=== PATIENT | male | born 1975 | race Caucasian/White ===

== ENCOUNTER 2017-03-24 18:33 | Inpatient (IN) | payer OTHER ==
[~2017-03-24] VITALS: Ht 170.2 cm; Wt 70.8 kg
--- NOTE | 2017-03-24 18:33 | NUR ---
Patient BIBA BLS, transferred to bed 3. RN evaluating patient at bedside.
--- NOTE | 2017-03-24 18:34 | NUR ---
37 YO MALE BIB EMS FROM THE FIELD FOR ALTERED MENTAL STATUS DUE TO ETOH. PT STS TIRED AT THIS TIME. DENIES ANY PAIN OR N/V/D; SKIN IS PINK/WARM/DRY; AAOX4 WITH EVEN AND STEADY GAIT; LUNGS CLEAR BL; HR EVEN AND REGULAR; PT DENIES ANY FEVER, CP, SOB, OR COUGH AT THIS TIME; PATIENT STATES PAIN OF 0/10 AT THIS TIME; PATIENT POSITIONED FOR COMFORT; HOB ELEVATED; BEDRAILS UP X2; BED DOWN. ER MD MADE AWARE OF PT STATUS.
[2017-03-24 18:39] VITALS: BP 114/62
[2017-03-24] MEDS ORDERED: MULTIVITAMIN-12 10 ML, THIAMINE 100 MG, MAGNESIUM SULFATE 50% 2,000 MG, FOLIC ACID 5 MG... IV ONE ×5 (18:40)
[2017-03-24] MEDS ORDERED: MULTIVITAMIN-12 10 ML VIAL IV ONE (18:55)
[2017-03-24] MEDS ORDERED: MAGNESIUM SULFATE 50% 1000 MG/2 ML VIAL IV ONE (18:55)
[2017-03-24] MEDS ORDERED: FOLIC ACID 5 MG/ML SYR ONE (18:55)
[2017-03-24] MEDS ORDERED: THIAMINE 200 MG/2 ML VIAL ONE (18:55)
--- NOTE | 2017-03-24 19:07 | NUR ---
Dr. Arambula evaluating patient at bedside.
--- NOTE | 2017-03-24 19:10 | NUR ---
PT RESTING IN BED, ON CONTINUITY EDITOR, DENIES ANY PAIN OR SOB, VSS. WILL CONT TO MONITOR.
--- NOTE | 2017-03-24 19:12 | NUR ---
GAVE REPORT TO SAMANTA MUÑOZ.
[2017-03-24 19:14] LABS: HEMATOCRIT 32.2 % (36-52); HEMOGLOBIN 10.4 g/dL (12.0-18.0); MEAN CORPUSCULAR HEMOGLOBIN 30 pg (27-31); MEAN CORPUSCULAR HGB CONC 32 g/dL (33-37); MEAN CORPUSCULAR VOLUME 92 fL (80-94); PLATELET COUNT (AUTO) 218 K/uL (140-450); RED BLOOD CELL COUNT(AUTO) 3.51 MIL/uL (4.20-6.10); RED CELL DISTRIBUTION WIDTH 17.9 % (11.6-13.7); WHITE BLOOD COUNT (AUTO) 5.2 K/uL (4.8-10.8)
[2017-03-24 19:17] LABS: ANION GAP 18.2 (8-16); CARBON DIOXIDE 22.9 mmol/L (21-32); CHLORIDE 106 mmol/L (98-107); CREATININE 0.6 mg/dL (0.7-1.3); GFR ARICAN-AMERICAN 193 mL/min (>90); GLUCOSE 91 mg/dL (74-106); POTASSIUM 4.1 mmol/L (3.5-5.1); SODIUM SERUM 143 mmol/L (136-145); UREA NITROGEN, BLOOD 8 mg/dL (7-18)
[2017-03-24 19:25] LABS: ALBUMIN 3.6 g/dL (3.4-5.0); ASPARTATE AMINOTRANSFERASE 38 U/L (15-37); TOTAL BILIRUBIN 0.2 mg/dL (0.0-1.0)
[2017-03-24 19:26] LABS: ACETAMINOPHEN < 0.5 ug/ml (10-30); EOSINOPHILS % (MANUAL) 3 % (0-4); LYMPHOCYTES % (MANUAL) 26 % (20-46); MONOCYTES % (MANUAL) 7 % (5-12); SALICYLATE < 2.8 mg/dL (2.8-20.0)
--- NOTE | 2017-03-24 19:57 | NUR ---
Patient noted to have existing wounds upon arrival to ER. Photos taken of wound and placed in chart. Wound covered with dressing. Physician informed.
--- NOTE | 2017-03-24 19:58 | NUR ---
Patient will be admitted to care of DR YOUNGER. Admited to TELE. Will go to room 111B. Belongings list completed. Report to SAMANTA NGUYEN.
--- NOTE | 2017-03-24 20:02 | NUR ---
PT TRASFERED TO FLOOR VIA [facility], ACCOMPANIED BY RN AND EMT.
[2017-03-24 20:05] VITALS: BP 127/65
--- NOTE | 2017-03-24 20:10 | NUR ---
PATIENT IS CURRENTLY BEING ADMITTED WITH ALCOHOL INTOXICATION PATIENT HAS SOME DRYNESS NOTED TO BOTH SOLES OF FOOT AND PATIENT HAS GENERALIZES SKIN DRYNESS.PATIENT HAS ALSO A VERY SMALL SCAB NOTED TO THE TOP OF HIS HEAD NOT DRAINING AT THIS TIME PATIENT TEACHING AND EDUCATION DONE NOT TO TOUCH IT OR SCRATCH IT.SKIN ASSESSMENT DONE WITH SAMANTA DONIS. IV BANANA BAG INFUSING WELL,IV SITE PATENT AND NO INFILTRATION NOTED.PLAN OF CARE DISCUSSED WITH THE PATIENT.WILL CONTINUE TO MONITOR.FALL PREC IMPLEMENTED.
[2017-03-24] MEDS ORDERED: NACL 0.9% 1,000 ML IV SCH (20:15)
[2017-03-24] MEDS ORDERED: ACETAMINOPHEN 325 MG TAB PO PRN ×2 (20:15→20:30)
[2017-03-24] MEDS ORDERED: DOCUSATE SODIUM 100 MG GELCAP PO PRN ×2 (20:15→20:30)
[2017-03-24] MEDS ORDERED: ONDANSETRON 4 MG/2 ML VIAL IM/IVP PRN ×2 (20:15→20:30)
[2017-03-24] MEDS ORDERED: LORazepam 1 MG TAB PO PRN ×2 (20:20→20:30)
[2017-03-24 20:22] LABS: BARBITURATE, URINE NEG. ng/ml (NEG <=200); BENZODIAZEPINE, URINE POS. ng/mL (NEG <=200); CANNABINOID, URINE NEG. ng/mL (NEG <=50); COCAINE, URINE NEG. ng/mL (NEG <=300); OPIATE, URINE NEG. ng/mL (NEG <=2000); PHENCYCLIDINE SCREEN,URINE NEG. ng/mL (NEG <=25)
[2017-03-24] MEDS: NACL 0.9% 1,000 ML IV SCH (20:30)
[2017-03-24 20:41] LABS: PROTHROMBIN TIME 10.6 secs (10.8-13.4)
[2017-03-24 20:50] LABS: MAGNESIUM 1.7 mg/dL (1.8-2.4); PHOSPHORUS 4.1 mg/dL (2.5-4.9); THYROID STIMULATING HORMONE 0.52 uIU/mL (0.34-3.74)
[2017-03-24] MEDS ORDERED: LORazepam 1 MG TAB PO SCH (21:00)
[2017-03-24] MEDS: LORazepam 1 MG TAB PO SCH (21:00)
[2017-03-24 21:53] LABS: APPEARANCE,URINE CLEAR (CLEAR); BILIRUBIN,URINE NEGATIVE (NEGATIVE); BLOOD, URINE NEGATIVE (NEGATIVE); COLOR,URINE YELLOW (YELLOW); LEUKOCYTE ESTERASE ,URINE NEGATIVE (NEGATIVE); NITRITE, URINE NEGATIVE (NEGATIVE); PH,URINE 5.5 (5.0-9.0); UGLUCOSE NEGATIVE (NEGATIVE)
--- NOTE | 2017-03-24 22:30 | NUR ---
Patient's Plan of Care was discussed and reviewed with BLEACH BOILER FILLER: PATRICK MICHEL
--- NOTE | 2017-03-24 22:40 | NUR ---
PATIENT TAKEN FOR CT TEST.
--- NOTE | 2017-03-24 23:38 | NUR ---
REPORT FOR CT BRAIN AND HEAD ARE IN AND MD MONSIVAIS HAS BEEN INFORMED AND NO NEW ORDER GIVEN.
[2017-03-25] VITALS (10 sets, daily range): BP systolic 101–145; BP diastolic 63–84
--- NOTE | 2017-03-25 00:40 | NUR ---
PATIENT IS CURRENTLY RESTING IN BED SLEEPING IN NO DISTRESS.CALL LIGHT WITHIN REACH.WILL CONTINUE TO MONITOR.
[2017-03-25] MEDS: NACL 0.9% 1,000 ML IV SCH (01:12)
--- NOTE | 2017-03-25 02:39 | NUR ---
PATIENT SLEEPING IN BED FALL AND SAFETY PRECAUTIONS IMPLEMENTED.
--- NOTE | 2017-03-25 03:20 | NUR ---
PATIENT RESTING IN BED NO DISTRESS WILL CONTINUE TO MONITOR.
[2017-03-25] MEDS: LORazepam 1 MG TAB PO SCH ×3 (04:46→21:00)
--- NOTE | 2017-03-25 04:55 | NUR ---
PATIENT STABLE RESTING IN BED IVF INFUSING WELL IV SITE PATENT CALL LIGHT WITHIN REACH.
--- NOTE | 2017-03-25 05:20 | NUR ---
EDUCATION GIVEN TO THE PATIENT ON THE IMPORTANCE OF SCD'S FOR DVT PROPHALAXIS. PATIENT NEEDS FURTHER EDUCATION AND REINFORCEMENT.
--- NOTE | 2017-03-25 05:20 | NUR ---
PATIENT REFUSES SCD'S AT THIS TIME COMPLAINS OF LOTS OF PAIN TO HIS RT LOWER EXTREMITY WHEN BOOT CONTRACTS, AND PATIENT FEELS RELIEF WHEN SCD'S IS OFF. SCD'S REMOVED.
[2017-03-25 05:24] LABS: HEMATOCRIT 32.1 % (36-52); HEMOGLOBIN 10.2 g/dL (12.0-18.0); MEAN CORPUSCULAR HEMOGLOBIN 29 pg (27-31); MEAN CORPUSCULAR HGB CONC 32 g/dL (33-37); MEAN CORPUSCULAR VOLUME 91 fL (80-94); PLATELET COUNT (AUTO) 225 K/uL (140-450); RED BLOOD CELL COUNT(AUTO) 3.51 MIL/uL (4.20-6.10); RED CELL DISTRIBUTION WIDTH 17.9 % (11.6-13.7); WHITE BLOOD COUNT (AUTO) 4.9 K/uL (4.8-10.8)
[2017-03-25 06:03] LABS: CARBON DIOXIDE 25.8 mmol/L (21-32); CREATININE 0.6 mg/dL (0.7-1.3); POTASSIUM 3.8 mmol/L (3.5-5.1)
[2017-03-25 06:07] LABS: MAGNESIUM 1.9 mg/dL (1.8-2.4); PHOSPHORUS 3.4 mg/dL (2.5-4.9)
[2017-03-25 06:28] LABS: EOSINOPHILS % (MANUAL) 3 % (0-4); LYMPHOCYTES % (MANUAL) 31 % (20-46); MONOCYTES % (MANUAL) 7 % (5-12)
--- NOTE | 2017-03-25 06:48 | NUR ---
PATIENT SLEEPING IN BED CURRENTLY STABLE FALL PRECAUTIONS IMPLEMENTED.IVF INFUSING WELL. WILL CONTINUE TO MONITOR.
--- NOTE | 2017-03-25 07:30 | NUR ---
RECEIVED REPORT FROM PM NURSE FOR CONTINUITY OF CARE. INITIAL ASSESSMENT DONE. PT A&O X3. RESP EVEN AND UNLABORED. IV INFUSING, INTACT, NO REDNESS OR SWELLING. SKIN IS WARM AND DRY. PLAN OF CARE DISCUSSED WITH PATIENT. VERBALIZED UNDERSTANDING. DENIES DISCOMFORT OR NEEDS. SAFETY MEASURE IN PLACED. CALL LIGHT WITHIN REACH. SIDE RAILS UP. BED ON LOW POSITION. WILL CONTINUE TO MONITOR.
[2017-03-25] MEDS: THIAMINE 100 MG TAB PO SCH (08:44)
[2017-03-25] MEDS: MULTIVITAMIN 1 TAB PO SCH (08:44)
[2017-03-25] MEDS: FOLIC ACID 1 MG TAB PO SCH (08:45)
[2017-03-25] MEDS: ATORVASTATIN 20 MG TAB PO SCH (08:46)
[2017-03-25] MEDS ORDERED: THIAMINE 100 MG TAB PO SCH (09:00)
[2017-03-25] MEDS ORDERED: FOLIC ACID 1 MG TAB PO SCH (09:00)
[2017-03-25] MEDS ORDERED: ASPIRIN 81 MG TAB.CHEW PO ONE (09:00)
[2017-03-25] MEDS ORDERED: MULTIVITAMIN 1 TAB PO SCH (09:00)
--- NOTE | 2017-03-25 09:00 | NUR ---
DISCONTINUED RIGHT AC IV DUE TO SWELLING AT THE SITE. NO REDNESS NOTED. CATHETER INTACT. BLEEDING CONTROLLED. NEW IV STARTED ON L HAND, 20G. IV INTACT, INFUSING. NO SWELLING OR REDNESS. PT TOLERATED THE PROCEDURE WELL. SAFETY MEASURES IN PLACED. WILL CONTINUE TO MONITOR.
--- NOTE | 2017-03-25 11:18 | NUR ---
PT UP OUT OF BED WITH MINIMAL ASSIST, AMBULATES TO BATHROOM WITH STEADY GAIT, PT RETURNED BACK TO BED, DENIES PAIN OR DISCOMFORT, DENIES ANY IMMEDIATE NEEDS, IVF CONTINUES TO INFUSE WITHOUT PROBLEM, IV SITE INTACT, CALL ROBBINS WITHIN REACH, SIDE RAILS UP, BED LOCKED IN LOW POSITION, WILL CONTINUE TO MONITOR.
--- NOTE | 2017-03-25 11:29 | NUR ---
PATIENT HAS BEEN SCREENED AND CATEGORIZED LOW NUTRITION RISK. PATIENT WILL BE SEEN WITHIN 7 DAYS OF ADMISSION. 03/31/[address] Addendum: 03/25/17 at [address] ERROR, DISREGARD NOTED
--- NOTE | 2017-03-25 11:36 | NUR ---
PATIENT HAS BEEN SCREENED AND CATEGORIZED MODERATE NUTRITION RISK. PATIENT WILL BE SEEN WITHIN 3-5 DAYS OF ADMISSION. 03/27/17-03/29/[address]
--- NOTE | 2017-03-25 12:06 | NUR ---
PT IN BED EATING LUNCH. DENIES NEEDS OR DISCOMFORT. NO SIGNS OF RESTLESSNESS, SHORTNESS OF BREATH, OR DISCOMFORT. RESP EVEN AND UNLABORED. SAFETY MEASURES IN PLACED. SIDE RAILS UP, CALL LIGHT WITHIN REACH, BED LOCKED IN LOW POSITION. WILL CONTINUE TO MONITOR.
--- NOTE | 2017-03-25 13:11 | NUR ---
CM NOTE FAXED INITIAL REVIEW TO [facility] [phone]
--- NOTE | 2017-03-25 15:35 | NUR ---
PT RESTING QUIETLY IN NAD, RESP EVEN UNLABORED, SKIN WARM DRY COLOR WNL, PT DENIES PAIN OR DISCOMFORT, NO IMMEDIATE NEEDS IDENTIFIED AT THIS TIME, STUDENT NURSES AT BEDSIDE FOR ASSESSMENT, WILL CONTINUE TO MONITOR.
--- NOTE | 2017-03-25 19:37 | NUR ---
ENDORSED TO PROGRAMMER DEVELOPER NURSE FOR CONTINUITY OF CARE. PT IS STABLE.
--- NOTE | 2017-03-25 19:40 | NUR ---
RECEIVED REPORT FROM DAY NURSE MIKE RN, PT IN STABLE CONDITION, PT IS AAOX3, PT IS ON RA, IV TO L HAND 20G INFUSING WELL, DRY AND INTACT, PT HAS SCDS IN PLACE, SKIN IN TACT, INITIAL ASSESSMENT COMPLETED, PLAN OF CARE DISCUSSED WITH PT, REINFORCEMENT NEEDED. ALL SAFETY PRECAUTIONS MET, CALL LIGHT WITHIN REACH, FREQUENT CHECKS TO ROOM, WILL CONTINUE TO MONITOR.
--- NOTE | 2017-03-25 20:02 | NUR ---
PT VOMITED DINNER, ZOFRAN GIVEN PER MD ORDERS, PT TOLERATED WELL.
[2017-03-26] VITALS: BP 126/75
--- NOTE | 2017-03-26 01:35 | NUR ---
IV ACCESS ON LT HAND PULLED OUT. RESTARTED A NEW IV ACCESS ON THE SAME LT HAND G#22. CLEAR AND PATENT.
--- NOTE | 2017-03-26 03:10 | NUR ---
MADE ROUNDS. PT IS ASLEEP. NO S/S OF ANY DISCOMFORT NOR PAIN NOTED. WILL CONTINUE TO MONITOR.
[2017-03-26 04:00] VITALS: BP 133/86
[2017-03-26] MEDS: LORazepam 1 MG TAB PO SCH ×2 (05:14→13:08)
--- NOTE | 2017-03-26 05:15 | NUR ---
DUE MEDICATION GIVEN, PT TOLERATED WELL. ALL SAFETY PRECAUTIONS MET, CALL LIGHT WITHIN REACH, WILL CONTINUE TO MONITOR.
[2017-03-26 07:08] LABS: HEMATOCRIT 36.6 % (36-52); HEMOGLOBIN 11.9 g/dL (12.0-18.0); MEAN CORPUSCULAR HEMOGLOBIN 29 pg (27-31); MEAN CORPUSCULAR HGB CONC 32 g/dL (33-37); MEAN CORPUSCULAR VOLUME 91 fL (80-94); PLATELET COUNT (AUTO) 195 K/uL (140-450); RED BLOOD CELL COUNT(AUTO) 4.03 MIL/uL (4.20-6.10); RED CELL DISTRIBUTION WIDTH 18.1 % (11.6-13.7); WHITE BLOOD COUNT (AUTO) 9.7 K/uL (4.8-10.8)
--- NOTE | 2017-03-26 07:22 | NUR ---
ENDORSED PLAN OF CARE TO DAY NURSE, PT IN STABLE CONDITION NO S/S OF DISTRESS NOTED. CALL LIGHT WITHIN REACH, ALL SAFETY PRECAUTIONS MET
--- NOTE | 2017-03-26 07:27 | NUR ---
RECEIVED REPORT FROM PM NURSE FOR CONTINUITY OF CARE. INITIAL ASSESSMENT DONE. PT IS SLEEPING BUT EASILY AROUSABLE. RESP EVEN AND UNLABORED. SKIN IS INTACT, WARM AND DRY. DISCUSSED PLAN OF CARE WITH PT. VERBALIZED UNDERSTANDING. SAFETY MEASURES IN PLACED. SIDE RAILS UP, BED LOCKED ON LOW POSITION, CALL LIGHT WITHIN REACH. WILL CONTINUE TO MONITOR.
[2017-03-26 07:33] LABS: EOSINOPHILS % (MANUAL) 2 % (0-4); LYMPHOCYTES % (MANUAL) 15 % (20-46); MONOCYTES % (MANUAL) 7 % (5-12)
[2017-03-26 08:00] VITALS: BP 114/58
[2017-03-26 08:38] LABS: ANION GAP 14.7 (8-16); CARBON DIOXIDE 28.7 mmol/L (21-32); CREATININE 0.6 mg/dL (0.7-1.3); POTASSIUM 4.4 mmol/L (3.5-5.1)
[2017-03-26] MEDS: NACL 0.9% 1,000 ML IV SCH (08:40)
[2017-03-26 08:42] LABS: MAGNESIUM 1.7 mg/dL (1.8-2.4); PHOSPHORUS 3.8 mg/dL (2.5-4.9)
[2017-03-26] MEDS: THIAMINE 100 MG TAB PO SCH (09:00)
--- NOTE | 2017-03-26 09:00 | NUR ---
AM MEDS GIVEN TO PT. TOLERATED WELL. PT DENIES ANY PAIN OR DISCOMFORT. NO S/S OF RESTLESSNESS, SOB, OR DISTRESS. SAFETY MEASURES IN PLACED. BED LOCKED ON LOW POSITION, SIDE RAILS UP, CALL LIGHT WITHIN REACH. WILL CONTINUE TO MONITOR. Addendum: 03/26/17 at 1126 by Jose Gonzalez RN PT DENIES VOMITING, TOLERATED BREAKFAST.
[2017-03-26] MEDS: ATORVASTATIN 20 MG TAB PO SCH (09:01)
[2017-03-26] MEDS: MULTIVITAMIN 1 TAB PO SCH (09:01)
[2017-03-26] MEDS: FOLIC ACID 1 MG TAB PO SCH (09:01)
--- NOTE | 2017-03-26 09:27 | NUR ---
CM NOTE FAXED CONCURRENT REVIEW TO [facility] [phone]
[2017-03-26] MEDS ORDERED: THIA-8 PO (09:40)
[2017-03-26] MEDS ORDERED: FOLI1TAB90 PO (09:40)
[2017-03-26] MEDS ORDERED: LORA-476 PO (09:40)
[2017-03-26 12:00] VITALS: BP 127/89
--- NOTE | 2017-03-26 12:02 | NUR ---
PT SITTING EATING LUNCH. TOLERATING LUNCH. RESP EVEN AND UNLABORED. DENIES PAIN, DISCOMFORT, OR NAUSEA. NO S/S OR RESTLESSNESS, SOB, DISTRESS. SAFETY MEASURES IN PLACED. BED LOCKED ON LOW POSITION, SIDE RAILS UP, CALL LIGHT WITHIN REACH. WILL CONTINUE TO MONITOR.
--- NOTE | 2017-03-26 13:30 | NUR ---
DISCHARGE REPORT, PRESCRIPTION, TEACHING GIVEN TO PT USING GEOGRAPHY FACULTY MEMBER LINE, AGENT #[id number]. PT VERBALIZED UNDERSTANDING. VSS. PT AAO X3. RESP EVEN AND UNLABORED. PT DENIES PAIN OR DISCOMFORT. NO S/S OF RESTLESSNESS, SOB, OR DISTRESS. [employer], [employer] RESOURCES, AND BUS PASS GIVEN TO PT. ESCORTED PT TO THE LOBBY, PT AMBULATED WITH STEADY GAIT.
== END 2017-03-26 13:30 | disposition home or self-care (01) | DRG 775 ==
LOC: MED 18:33 → EDBD 20:18 → MTU 20:18
PROVIDERS: ADMIT Family Medicine; ATTEND Family Medicine
DX: F10.229 Alcohol dependence with intoxication, unspecified (principal); G92 Toxic encephalopathy; E87.2 Acidosis; G90.9 Disorder of the autonomic nervous system, unspecified; I08.1 Rheumatic disorders of both mitral and tricuspid valves; S82.401A Unspecified fracture of shaft of right fibula, initial encounter for closed fracture; D64.9 Anemia, unspecified; F32.9 Major depressive disorder, single episode, unspecified; R55 Syncope and collapse; Y90.8 Blood alcohol level of 240 mg/100 ml or more; F29 Unspecified psychosis not due to a substance or known physiological condition; F17.210 Nicotine dependence, cigarettes, uncomplicated; Z59.0 Homelessness; V49.9XXA Car occupant (driver) (passenger) injured in unspecified traffic accident, initial encounter; Y93.89 Activity, other specified; Y92.89 Other specified places as the place of occurrence of the external cause; Y99.8 Other external cause status
CPT/HCPCS: 36415; 70450; 71010; 73562; 73590; 80048; 80053; 80305; 81003; 82948; 83036; 83735; 83880; 84100; 84436; 84443; 84479; 84484; 85025; 85610; 85730; 87081; 93005; 93880; 96365; 99285; A9153; G0480; G0482; J2405; J3411; J3475; J3490; J7030; Q0092